=== PATIENT | female | born 1965 | race American Indian/Alaskan Native ===

== ENCOUNTER 2016-08-23 07:17 | Day surgery (SDC) | payer OTHER ==
[~2016-08-23 07:17] MED LIST: NACL 0.9% 1000 ML 1,000 ML IV SCH; PEPCID PO NR; VERSED IV NR
[2016-08-23] MEDS ORDERED: DIPRIVAN 10 MG/ML IV ONE (07:45)
[2016-08-23] MEDS ORDERED: ZEMURON IV ONE (07:45)
[2016-08-23] MEDS ORDERED: XYLOCAINE MPF 2% ONE ×2 (07:45→08:57)
[2016-08-23] MEDS ORDERED: DILAUDID ONE (07:46)
[2016-08-23] MEDS ORDERED: SUBLIMAZE IV PRN (07:55)
--- NOTE | 2016-08-23 07:55 | Anesthesia Day of Surgery ---
Anesthesia Day of Surgery - Day of Surgery Patient Examined: Yes Patient H&P Reviewed: Yes Patient is NPO: Yes
--- NOTE | 2016-08-23 07:55 | Anesthesia Consultation ---
Anesthesia Consult and Med Hx Date of service: 08/23/16 - Airway Anesthetic Teeth Evaluation: Good ROM Head & Neck: Adequate Mental/Hyoid Distance: Inadequate Mallampati Class: Class III Intubation Access Assessment: Possibly Difficult - Pulmonary Exam CTA: Yes (blbs clear) - Cardiac Exam Cardiac Exam: RRR - Pre-Operative Health Status ASA Pre-Surgery Classification: ASA1 Proposed Anesthetic Plan: General - Pulmonary SOB: No - Cardiovascular System Hx Heart Murmur: Yes (Mitral valve regurgitation) - Central Nervous System Hx Psychiatric Problems: Yes - Other Systems Hx Cancer: No
[2016-08-23] MEDS ORDERED: SILVER NITRATE TP ONE ×2 (08:08→09:30)
--- NOTE | 2016-08-23 08:15 | Short Stay Summary ---
Short Stay Documentation Date of service: 08/23/16 Narrative H&P: Pt is a 51yo BF LMP 05/2015 presents for a Hysteroscopy and D&C due to a thickened endometrium on pelvic u/s. An endometrial biopsy was attempted in the office, but was unable to to cervical stenosis. She has had an endometrial polyp removed in the past. - History Principal diagnosis: Menorrhagia H&P: obtained from office Past Medical History: No medical history Past Surgical History: Other (endometrial polypectomy) Social history: no significant social history, single - Allergies and Medications Current Medications: Allergies No Known Allergies Allergy (Unverified 08/20/16 17:06) Home Medications Medication Instructions Recorded Confirmed Last Taken Type Acyclovir [Zovirax Tab] 400 mg PO DAILY 08/20/16 08/20/16 Unknown History Albuterol Sulfate [Ventolin HFA] 2 puff IH Q4H PRN 08/20/16 08/20/16 Unknown History Cetirizine HCl [ZyrTEC] 10 mg PO PRN PRN 08/20/16 08/20/16 Unknown History Citalopram [celeXA] 20 mg PO QDAY 08/20/16 08/20/16 Unknown History Montelukast [Singulair] 10 mg PO QPM 08/20/16 08/20/16 Unknown History Ranitidine HCl [Zantac 150 MG TAB] 150 mg PO PRN PRN 08/20/16 08/20/16 Unknown History Active Medications Famotidine (Pepcid) 20 mg PO PREOP NR Stop: 08/23/16 23:59 Fentanyl (Sublimaze) 50 mcg IV Q5MIN PRN PRN Reason: Pain , Severe (7-10) Stop: 08/26/16 07:56 Hydromorphone HCl (Dilaudid) 0.25 mg IV Q10MIN PRN PRN Reason: Pain, Moderate (4-6) Stop: 08/26/16 07:56 Sodium Chloride (Nacl 0.9% 1000 Ml) 1,000 mls @ 75 mls/hr IV DIRECT JAZZMINE Midazolam HCl (Versed) 2 mg IV PREOP NR Stop: 08/23/16 23:59 Ondansetron HCl (Zofran) 4 mg IV ONCE PRN PRN Reason: Nausea And Vomiting Stop: 08/23/16 07:56 - Physical exam General appearance: no acute distress Integumentary: no rash HEENT: Atraumatic Lungs: Clear to auscultation Breasts: deferred Heart: Regular rate Gastrointestinal: normal Female Genitourinary: deferred Rectal Exam: deferred Extremities: No edema Neurological: Normal speech - Brief post op/procedure progress note Date of procedure: 08/23/16 Pre-op diagnosis: 1. Endometrial hyperplasia 2. Cervical stenosis Post-op diagnosis: same Procedure: 1. Hysteroscopy 2. D&C Anesthesia: MAC Findings: A 10 weeks size uterus with lush amounts of endometrial tissue obtained with curettage. No endometrial masses seen. Surgeon: LY TANG Estimated blood loss: minimal Pathology: list (Endometrial curettings) Specimen disposition: to lab Condition: stable - Hospital course Hospital course: Unremarkable. - Disposition Condition at discharge: Good Disposition: DISCHARGED TO HOME OR SELFCARE - Discharge Diagnoses (1) Endometrial hyperplasia Status: Chronic (2) Cervical stenosis (uterine cervix) Status: Chronic Short Stay Discharge Plan Activity: no restrictions Diet: regular Follow up with: LY TANG MD [Staff Physician] - 14 Days Prescriptions: HYDROcodone/APAP 5-325 [[place] 5/325] 1 each PO Q6HR PRN #20 tablet PRN Reason: Pain
[2016-08-23] MEDS ORDERED: ANCEF/STERILE WATER 2 GM/20 ML 2 GM/20 ML SYRINGE IV NR (09:00)
[2016-08-23 09:10] LABS: Hematocrit 37.3 % (30.3-42.9); Hemoglobin 12.5 gm/dl (10.1-14.3); Mean Corpuscular HGB Conc 33 % (30-34); Mean Corpuscular Hemoglobin 32 pg (28-32); Mean Corpuscular Volume 95 fl (79-97); Platelet Count 236 K/mm3 (140-440); Red Blood Count 3.93 M/mm3 (3.65-5.03); Red Cell Distribution Width 13.1 % (13.2-15.2); White Blood Count 4.1 K/mm3 (4.5-11.0)
[2016-08-23] MEDS ORDERED: NACL 0.9% IR ONE (09:21)
--- NOTE | 2016-08-23 09:51 | Post Anesthesia Evaluation ---
- Post Anesthesia Evaluation Patient Participated: Yes Airway Patent: Yes Stable Respiratory Function: Yes Nausea/Vomiting: No Temp > 96.8F: Yes Pain Manageable: Yes Adequeate Hydration: Yes Anesthesia Complications: No Block Receding Appropriately: Not Applicable Patient on Ventilator: No
--- NOTE | 2016-08-23 09:53 | Operative Report ---
Operative Report Operative Report: PREOPERATIVE DIAGNOSIS: 1. Endometrial hyperplasia 2. Cervical stenosis POSTOPERATIVE DIAGNOSIS: Same OPERATIVE PROCEDURE: 1. Hysteroscopy 2. Dilatation and curettage. SURGEON: Richard Purcell MD ANESTHESIA: General Mac ANESTHESIOLOGIST: Dr. Segal ESTIMATED BLOOD LOSS: 10 mL's FINDINGS: An enlarged uterus sounded to 10 cm. Hysteroscopy showed large amounts of endometrial tissue. Moderate amounts of endometrial tissue removed with minimal effort. COMPLICATIONS: None COUNTS: Correct x3. PROCEDURE: After the patient was correctly identified, and after general anesthesia was administered, the patient was prepped and draped in the usual sterile fashion and placed in dorsal lithotomy position. First, the bladder was emptied using a straight catheter. Next, a speculum was placed in the vaginal vault and the anterior lip of the cervix was grasped using a single- tooth tenaculum. The uterus was sounded to 10 cm. The cervical os was sequentially dilated, and the hysteroscope was introduced into the uterine cavity showing lush amount of endometrial tissue. The hysteroscope was then removed, and sharp curettage was performed yielding moderate amounts of endometrial tissue with minimal effort. The specimen was sent to pathology. At this point the procedure was considered complete. All instruments were removed from the vagina. The patient tolerated the procedure well and was transferred to the recovery room in stable condition.
[2016-08-23] MEDS: DILAUDID IV PRN ×2 (10:15→10:30)
[2016-08-23] MEDS ORDERED: LACTATED RINGERS 1,000 ML IV SCH (11:00)
[2016-08-23] MEDS ORDERED: ZOFRAN IV PRN (11:00)
[2016-08-23 12:55] VITALS: BP 137/70
== END 2016-08-23 12:20 | disposition home or self-care (01) ==
LOC: OR 07:17
PROVIDERS: ATTEND Obstetrics & Gynecology
DX: N88.2 Stricture and stenosis of cervix uteri (principal); N85.00 Endometrial hyperplasia, unspecified; N85.2 Hypertrophy of uterus; J45.909 Unspecified asthma, uncomplicated; K21.9 Gastro-esophageal reflux disease without esophagitis; F32.9 Major depressive disorder, single episode, unspecified; Z79.899 Other long term (current) drug therapy
CPT/HCPCS: 36415; 58558; 81025; 85027; 88305; A4217; J0690; J1170; J2250; J2405; J2704; J7030

== ENCOUNTER 2017-01-15 15:08 | Outpatient (CLI) | payer OTHER | END 2017-01-15 15:09 | disposition home or self-care (01) | LOC: LABHHL 15:08 | PROVIDERS: ATTEND Surgery | DX: N60.02 Solitary cyst of left breast (principal) | CPT/HCPCS: 88112 ==